=== PATIENT | female | born 1960 | race Caucasian/White ===

== ENCOUNTER 2021-10-31 10:00 | Emergency (ER) | payer BC ==
[~2021-10-31] VITALS: Ht 165.1 cm; Wt 77.3 kg
[2021-10-31 10:03] VITALS: BP 155/70
== END 2021-10-31 11:00 | disposition home or self-care (01) ==
LOC: ER 10:01
DX: M54.6 Pain in thoracic spine (principal); R11.0 Nausea; F41.9 Anxiety disorder, unspecified
CPT/HCPCS: 93005; 99283

== ENCOUNTER 2022-10-29 09:46 | Day surgery (SDC) | payer BC ==
[2022-10-29] VITALS (13 sets, daily range): BP systolic 127–152; BP diastolic 59–96; PULSE 60–75; RESP 9–17; TEMP 98.4; O2SAT 93–98
[~2022-10-29] VITALS: Ht 165.1 cm; Wt 82.4 kg
[~2022-10-29 09:46] MED LIST: CBD GUMMIES PO; FLUT16SP2 BOTHNARES; SERT-434 PO; cocaine 4% topical solution 4ml bottle ONE; famotidine 20mg tablet PO ONE; ringers solution, lacted 1,000 ML IV SCH; tranexamic acid 100mg/ml inj. ONE; tranexamic acid inj. 1,000 MG in normal saline IV soln 100ML IV ONE
[2022-10-29] MEDS: oxymetazoline 15 ML nasal spray NS ONE ×2 (10:23→13:37)
[2022-10-29] MEDS ORDERED: labetalol 20mg/4ml (5mg/ml) syringe IV PRN (12:25)
[2022-10-29] MEDS ORDERED: HYDROmorphone/PF 0.2 MG/ML SYRINGE IV PRN ×2 (12:25)
[2022-10-29] MEDS ORDERED: ondansetron/PF 4mg/2ml inj IV PRN (12:25)
[2022-10-29] MEDS ORDERED: ringers solution, lacted 1,000 ML IV SCH (12:25)
[2022-10-29] MEDS ORDERED: morphine 2 MG/ML inj. syringe IV PRN (12:25)
[2022-10-29] MEDS ORDERED: acetaminophen 1,000mg/100ml IV 100 ML IV PRN (12:25)
[2022-10-29] MEDS ORDERED: hydrALAZINE 20mg/ml inj. IV PRN (12:25)
[2022-10-29] MEDS ORDERED: morphine 4 MG/ML inj SYRINge IV PRN (12:25)
[2022-10-29] MEDS ORDERED: proCHLORperazine 10 MG/2 ml inj IV PRN (12:25)
[2022-10-29] MEDS ORDERED: sevoflurane 250ml liquid IH ONE (12:26)
[2022-10-29] MEDS ORDERED: fentaNYL/PF 50MCG/1 ML 2ML syringe ONE (12:31)
[2022-10-29] MEDS ORDERED: midazolam 1 mg/ML 2ml injection ONE (12:32)
[2022-10-29] MEDS ORDERED: LIDOcaine 2% (20mg/ml) 5ml vial ONE (12:47)
[2022-10-29] MEDS ORDERED: dexamethasone sod phosphate 4mg/ml inj. ONE (12:47)
[2022-10-29] MEDS ORDERED: ondansetron/PF 4mg/2ml inj ONE (12:47)
[2022-10-29] MEDS ORDERED: propofol inj 20 ML IV ONE (12:47)
[2022-10-29] MEDS ORDERED: epiNEPHrine 1 mg/ml 30ml MDV ENDO ONE (13:37)
[2022-10-29] MEDS ORDERED: mupirocin 2% nasal ointment 1gm UD NS ONE (13:38)
[2022-10-29] MEDS ORDERED: LIDOcaine 1% w/epiNEPHrine 1:200,000 30ml vial IM ONE (13:40)
[2022-10-29] MEDS ORDERED: labetalol 20mg/4ml (5mg/ml) syringe IV ONE (13:51)
--- NOTE | 2022-10-29 14:20 | NUR ---
Received from OR via [facility], accompanied by Anesthesiologist DR MCCORMICK and report given by Anesthesiologist. PT GROGGY BUT RESPONDS TO VERBAL STIMULI AND FOLLOWS COMMANDS. PT PLACED ON BEDSIDE MONITOR, VSS. PT IS IN SR WITH RATE IN 60'S. PT IS RECEIVING 8L O2 TO MASK AND TOLERATING WELL WITH O2 SAT >95%. WILL TITRATE DOWN AT PT TOLERATES. PT HAS 20G PIV TO RT HAND WITH LR INFUSING ORDERED. PT HAS COTTONOIDS TO BILAT NARES. PT DENIES PAIN AT THIS TIME. WILL CONTINUE TO ASSESS
[2022-10-29] MEDS ORDERED: salt irrigation nasal spray 45 ML SPRAY NS PRN (15:00)
--- NOTE | 2022-10-29 16:33 | NUR ---
ABLE TO SAFELY AMBULATE AND TRANSFER SELF. IV TAKEN OUT WITHOUT ANY COMPLICATIONS. ALL DISCHARGE INSTRUCTIONS COVERED WITH PATIENT AND ALL QUESTIONS ANSWERED. PATIENT TAKEN OUT VIA WHEELCHAIR TO PERSONAL VEHICLE WHERE ALBARO DROVE PATIENT HOME.
== END 2022-10-29 16:25 | disposition home or self-care (01) ==
LOC: PAS 09:46
PROVIDERS: ATTEND Otolaryngology
DX: J34.2 Deviated nasal septum (principal); J34.3 Hypertrophy of nasal turbinates; J32.8 Other chronic sinusitis; J33.8 Other polyp of sinus; F41.9 Anxiety disorder, unspecified; Z79.899 Other long term (current) drug therapy
CPT/HCPCS: 30140; 30520; 31259; 31267; 61782; 82948; 93005; A6402; J0131; J0171; J1100; J2250; J2270; J2405; J2704; J3010; J3490; J7030; J7050; J7120; Z7506; Z7508; Z7512; A4618; A6449; A7000